=== PATIENT | male | born 1960 | race African-American/Black ===

== ENCOUNTER 2017-01-01 06:00 | Day surgery (SDC) | payer OTHER ==
[~2017-01-01] VITALS: Ht 180.3 cm; Wt 72.6 kg
[~2017-01-01 06:00] MED LIST: ALENDRONATE SOD70 MG PO; CIPRO500 MG OR; DILANTIN100 MG PO; FOLIC ACID1 MG PO; LORCET HD 10-321 TAB; LORTAB 5 OR; METHOTREXATE2.5 MG PO; MICARDIS40 MG PO; PERCOCET 5/325M1 TAB OR; PHENYTEK200 MG OR; PHENYTOIN100 MG/4 M PO; RHEUMATREX2.5 M1 PO; RHEUMATREX2.5 MG PO; TYLENOL # 31 TAB OR; ULTRAM50 MG OR
[2017-01-01 11:02] VITALS: BP 152/74
== END 2017-01-01 10:50 | disposition home or self-care (01) | DRG 378 ==
LOC: ENDO 06:00 → ORM 08:00 → ENDO 10:50
PROVIDERS: ATTEND Surgery
PROC: 0DBP8ZX Excision of Rectum, Via Natural or Artificial Opening Endoscopic, Diagnostic (ICD-10-PCS; principal; 2017-01-01)
DX: K62.5 Hemorrhage of anus and rectum (principal); E22.2 Syndrome of inappropriate secretion of antidiuretic hormone; D12.8 Benign neoplasm of rectum; G40.909 Epilepsy, unspecified, not intractable, without status epilepticus; F17.210 Nicotine dependence, cigarettes, uncomplicated

== ENCOUNTER 2019-10-15 | Emergency (ER) | payer MEDICAID ==
[2019-10-15 11:02] LABS: HEMATOCRIT 33.9 % (39.0-50.0); HEMOGLOBIN 11.2 g/dl (14.0-18.0); IMMATURE GRANULOCYTES 0.3 % (0.0-5.0); MEAN CELL VOLUME 92.1 fL CALC (80.0-100.0); MEAN CORPUSCULAR HGB 30.4 pG CALC (26.0-32.0); NEUT# 9.68 thou/uL (1.82-7.42); RED BLOOD COUNT 3.68 mill/uL (4.70-6.10); RED CELL DISTRI WIDTH 13.2 % (11.5-15.5)
[2019-10-15 11:24] LABS: ALBUMIN 3.9 g/dL (3.2-5.0); ALKALINE PHOSPHATASE 147 u/l (38-126); BILIRUBIN, TOTAL 0.6 mg/dL (0.0-1.4); BUN 9 mg/dL (9-20); BUN/CREATININE RATIO 12 (12-20 (CALC)); CARBON DIOXIDE 25 mmol/l (22-30); CHLORIDE 93 mmol/l (95-108); CREATININE 0.8 mg/dL (0.7-1.3); GFR > 60 ML/MIN (>=60 (CALC)); GFR FOR AFR.AMER. > 60 ML/MIN (>=60 (CALC)); POTASSIUM 4.3 mmol/l (3.5-5.1); SGOT/AST 28 u/l (17-59); TOTAL PROTEIN 8.9 g/dL (6.3-8.2)
[2019-10-15 11:25] LABS: ANION GAP 15 (6-22 (CALC)); SODIUM 129 mmol/l (137-146)
[2019-10-15] MEDS ORDERED: DILANTIN100 MG PO (11:28)
[2019-10-15] MEDS ORDERED: OXYCODONE HYDRO15 MG PO (11:29)
[2019-10-15] MEDS ORDERED: ATENOLOL25 MG PO (11:29)
[2019-10-15] MEDS ORDERED: LISINOPRIL20 M1 PO (11:29)
[2019-10-15] MEDS ORDERED: AMOX/K CLAV875 M1 PO (13:03)
[2019-10-15] MEDS ORDERED: LORTAB 1010 MG PO (13:03)
== END 2019-10-15 13:18 | disposition home or self-care (01) ==
PROVIDERS: Emergency Medicine
DX: K11.3 Abscess of salivary gland (principal); F17.200 Nicotine dependence, unspecified, uncomplicated
CPT/HCPCS: Q9967

== ENCOUNTER 2020-11-18 17:35 | Emergency (ER) | payer MEDICAID ==
[~2020-11-18] VITALS: Ht 180.3 cm; Wt 63.0 kg
[~2020-11-18 17:35] MED LIST changes: +AMOX/K CLAV875 M1 PO; +ATENOLOL25 MG PO; +LISINOPRIL20 M1 PO; +LORTAB 1010 MG PO; +OXYCODONE HYDRO15 MG PO
[2020-11-18] MEDS ORDERED: LORTAB 1010 MG PO (19:27)
[2020-11-18 19:42] VITALS: BP 183/82
== END 2020-11-18 20:00 | disposition home or self-care (01) ==
LOC: ED 17:35
DX: S92.132A Displaced fracture of posterior process of left talus, initial encounter for closed fracture (principal); F17.210 Nicotine dependence, cigarettes, uncomplicated; V13.4XXA Pedal cycle driver injured in collision with car, pick-up truck or van in traffic accident, initial encounter; Y93.55 Activity, bike riding; Y92.410 Unspecified street and highway as the place of occurrence of the external cause

== ENCOUNTER 2021-10-11 11:57 | Emergency (ER) | payer MEDICAID ==
[~2021-10-11] VITALS: Ht 180.3 cm; Wt 80.0 kg
[2021-10-11 13:42] LABS: HEMOGLOBIN 12.3 g/dl (14.0-18.0); MEAN CELL VOLUME 95.7 fL CALC (80.0-100.0); MEAN CORPUSCULAR HGB CONC 32.4 g/dL CAL (32.0-36.0); NEUT# 2.2 thou/uL (1.82-7.42); RED BLOOD COUNT 3.97 mill/uL (4.70-6.10); RED CELL DISTRI WIDTH 14.1 % (11.5-15.5)
[2021-10-11 14:07] LABS: ALBUMIN 3.8 g/dL (3.2-5.0); ALKALINE PHOSPHATASE 184 u/l (38-126); BILIRUBIN, TOTAL 0.4 mg/dL (0.0-1.4); BUN 4 mg/dL (8-23); BUN/CREATININE RATIO 5 (12-20 (CALC)); CARBON DIOXIDE 28 mmol/l (22-30); CREATININE 0.7 mg/dL (0.7-1.3); GFR > 60 ML/MIN (>=60 (CALC)); GFR FOR AFR.AMER. > 60 ML/MIN (>=60 (CALC)); POTASSIUM 4.5 mmol/l (3.5-5.1); SGOT/AST 33 u/l (19-48); TOTAL PROTEIN 9.4 g/dL (6.3-8.2)
[2021-10-11 14:16] LABS: ANION GAP 10 (6-22 (CALC)); CHLORIDE 105 mmol/l (95-108); SODIUM 138 mmol/l (137-146)
[2021-10-11 14:54] LABS: URINE BILIRUBIN - DIPSTICK NEGATIVE (NEGATIVE); URINE BLOOD DIPSTICK NEGATIVE (NEGATIVE); URINE COLOR YELLOW; URINE GLUCOSE - DIPSTICK NEGATIVE (NEGATIVE); URINE KETONE NEGATIVE (NEGATIVE); URINE LEUK ESTERASE NEGATIVE (NEGATIVE); URINE NITRITE - DIPSTICK NEGATIVE (Negative); URINE PROTEIN - DIPSTICK NEGATIVE (NEG-TRACE); URINE UROBILINOGEN - DIPSTICK 0.2 E.U./dL (0.2)
[2021-10-11 15:33] VITALS: BP 172/92
== END 2021-10-11 15:54 | disposition home or self-care (01) ==
LOC: ED 11:57
PROVIDERS: Emergency Medicine
DX: I10 Essential (primary) hypertension (principal); F17.200 Nicotine dependence, unspecified, uncomplicated

== ENCOUNTER 2021-11-12 22:04 | Emergency (ER) | payer MEDICAID ==
[~2021-11-12] VITALS: Ht 180.3 cm; Wt 63.0 kg
[2021-11-12 22:50] LABS: URINE BILIRUBIN - DIPSTICK NEGATIVE (NEGATIVE); URINE BLOOD DIPSTICK TRACE-INTACT (NEGATIVE); URINE COLOR YELLOW; URINE GLUCOSE - DIPSTICK NEGATIVE (NEGATIVE); URINE KETONE NEGATIVE (NEGATIVE); URINE LEUK ESTERASE NEGATIVE (NEGATIVE); URINE PROTEIN - DIPSTICK NEGATIVE (NEG-TRACE); URINE UROBILINOGEN - DIPSTICK 0.2 E.U./dL (0.2)
[2021-11-12 22:51] LABS: HEMATOCRIT 34.6 % (39.0-50.0); HEMOGLOBIN 11.3 g/dl (14.0-18.0); MEAN CORPUSCULAR HGB 30.4 pG CALC (26.0-32.0); MEAN CORPUSCULAR HGB CONC 32.7 g/dL CAL (32.0-36.0); NEUT# 2.03 thou/uL (1.82-7.42); RED BLOOD COUNT 3.72 mill/uL (4.70-6.10)
[2021-11-12 22:54] LABS: URINE NITRITE - DIPSTICK NEGATIVE (Negative)
[2021-11-12 22:56] LABS: ALBUMIN 3.7 g/dL (3.2-5.0); ALKALINE PHOSPHATASE 187 u/l (38-126); AMYLASE 77 u/l (30-110); ANION GAP 14 (6-22 (CALC)); BILIRUBIN, TOTAL 0.4 mg/dL (0.0-1.4); BUN 5 mg/dL (8-23); BUN/CREATININE RATIO 10 (12-20 (CALC)); CHLORIDE 102 mmol/l (95-108); CREATININE 0.5 mg/dL (0.7-1.3); GFR > 60 ML/MIN (>=60 (CALC)); GFR FOR AFR.AMER. > 60 ML/MIN (>=60 (CALC)); LIPASE 50 u/l (23-300); POTASSIUM 3.8 mmol/l (3.5-5.1); SGOT/AST 30 u/l (19-48); SODIUM 133 mmol/l (137-146); TOTAL PROTEIN 8.8 g/dL (6.3-8.2)
[2021-11-12 22:57] LABS: CARBON DIOXIDE 21 mmol/l (22-30)
[2021-11-12] MEDS ORDERED: MIRALAX17 GM PO (23:39)
[2021-11-12 23:45] VITALS: BP 142/90
== END 2021-11-12 23:52 | disposition home or self-care (01) ==
LOC: ED 22:04
PROVIDERS: Family Medicine
DX: K59.00 Constipation, unspecified (principal); I10 Essential (primary) hypertension; F17.200 Nicotine dependence, unspecified, uncomplicated

== ENCOUNTER 2022-01-26 17:47 | Emergency (ER) | payer MEDICAID ==
[~2022-01-26] VITALS: Ht 180.3 cm; Wt 77.0 kg
[~2022-01-26 17:47] MED LIST changes: +MIRALAX17 GM PO
[2022-01-26] MEDS ORDERED: LORTAB 1010 MG PO (21:52)
[2022-01-26 23:00] VITALS: BP 130/80
== END 2022-01-26 23:00 | disposition home or self-care (01) ==
LOC: ED 17:47
DX: S72.111A Displaced fracture of greater trochanter of right femur, initial encounter for closed fracture (principal); I10 Essential (primary) hypertension; F17.200 Nicotine dependence, unspecified, uncomplicated; V18.0XXA Pedal cycle driver injured in noncollision transport accident in nontraffic accident, initial encounter; Y93.55 Activity, bike riding

== ENCOUNTER 2023-09-09 01:34 | Emergency (ER) | payer MEDICAID ==
[~2023-09-09] VITALS: Ht 180.3 cm; Wt 65.0 kg
[2023-09-09] VITALS (8 sets, daily range): BP systolic 89–120; BP diastolic 60–79
[2023-09-09] MEDS ORDERED: TENORMIN25 MG PO (01:40)
[2023-09-09] MEDS ORDERED: LISINOPRIL20 M1 PO (01:41)
[2023-09-09] MEDS ORDERED: MS CONTIN30 MG PO (01:42)
[2023-09-09] MEDS ORDERED: DILANTIN100 MG PO (01:43)
[2023-09-09] MEDS ORDERED: MAXZIDE-25MG1 COMBO PO (01:44)
[2023-09-09 01:55] LABS: BASO% 0.2 % (0-3); EOS% 0.1 % (0-8); HEMATOCRIT 31.6 % (39.0-50.0); HEMOGLOBIN 10.2 g/dl (14.0-18.0); IMMATURE GRANULOCYTES 0.8 % (0.0-5.0); LYMPH% 14.3 % (15-41); MEAN CELL VOLUME 88.8 fL CALC (80.0-100.0); MEAN CORPUSCULAR HGB 28.7 pG CALC (26.0-32.0); MEAN CORPUSCULAR HGB CONC 32.3 g/dL CAL (32.0-36.0); MONO% 11.8 % (2-13); NEUT# 6.74 thou/uL (1.82-7.42); NEUT% 72.8 % (42-76); RED BLOOD COUNT 3.56 mill/uL (4.70-6.10); RED CELL DISTRI WIDTH 14.1 % (11.5-15.5)
[2023-09-09 02:23] LABS: ALBUMIN 4.2 g/dL (3.2-5.0); ALKALINE PHOSPHATASE 167 u/l (38-126); BILIRUBIN, TOTAL 0.5 mg/dL (0.2-1.3); BUN 10 mg/dL (8-23); BUN/CREATININE RATIO 12 (12-20 (CALC)); CARBON DIOXIDE 18 mmol/l (22-30); CHLORIDE 96 mmol/l (95-108); CREATININE 0.8 mg/dL (0.7-1.3); ETHYL ALCOHOL 0 mg/dl (0-30); GFR FOR AFR.AMER. > 60 ML/MIN (>=60 (CALC)); GFR OTHER RACES > 60 ML/MIN (>=60 (CALC)); LIPASE 25 u/l (23-300); POTASSIUM 4.5 mmol/l (3.5-5.1); SGOT/AST 27 u/l (19-48)
[2023-09-09 02:32] LABS: ANION GAP 17 (6-22 (CALC)); SODIUM 126 mmol/l (137-146)
[2023-09-09 04:29] LABS: PHENYTOIN (DILANTIN) 32 ug/mL (10 - 20)
[2023-09-09] MEDS ORDERED: VIBRAMYCIN100 M2 PO (05:31)
== END 2023-09-09 07:33 | disposition home or self-care (01) ==
LOC: ED 01:34
PROVIDERS: Family Medicine
DX: J18.9 Pneumonia, unspecified organism (principal); R11.0 Nausea; R10.32 Left lower quadrant pain; T42.0X5A Adverse effect of hydantoin derivatives, initial encounter; E87.1 Hypo-osmolality and hyponatremia; I10 Essential (primary) hypertension; F17.200 Nicotine dependence, unspecified, uncomplicated; Z20.822 Contact with and (suspected) exposure to COVID-19
CPT/HCPCS: Q9967; S0164